=== PATIENT | male | born 1980 | race Caucasian/White ===

== ENCOUNTER 2021-05-17 18:55 | Emergency (ER) | payer BC, OTHER ==
[2021-05-17 19:11] VITALS: BP 128/88; PULSE 78; TEMP 98.6; BMI 36.2
[2021-05-18] MEDS ORDERED: PANTOPRAZOLE 40 MG TABLET ONE (15:16)
[2021-05-18] MEDS ORDERED: AMPICILLIN NA/SULBACTAM NA 3 GM VIAL ONE (15:16)
== END 2021-05-17 19:51 | disposition left against medical advice (07) ==
LOC: EDBD → FER 18:55
DX: R22.41 Localized swelling, mass and lump, right lower limb (principal); H60.91 Unspecified otitis externa, right ear
CPT/HCPCS: 96374; 99284-25

== ENCOUNTER 2021-05-18 13:47 | Inpatient (IN) | payer BC ==
[2021-05-18] MEDS ORDERED: AMPICILLIN NA/SULBACTAM NA 3 GM in SODIUM CHLORIDE 100 ML IVPB ONE (13:58)
[2021-05-18] MEDS ORDERED: ACETAMINOPHEN 325 MG TABLET (FP) PO PRN (13:58)
[2021-05-18] MEDS: PANTOPRAZOLE 40 MG TABLET PO SCH (15:23)
[2021-05-18 15:26] LABS: BASO % 1.5 % (0-2.0); EOS % 1.6 % (0-4.5); HEMATOCRIT 42.6 % (35.4-49); HEMOGLOBIN 14.1 GM/dl (11.7-16.9); LYMPH % 19.3 % (8-40); MCH 26.8 pg (25.7-33.7); MCHC 33.1 g/dl (32.0-35.9); MEAN PLT VOLUME 7.8 fl (7.5-11.1); MONO % 8.5 % (3.8-10.2); NEUT % 69.1 % (42.8-82.8); PLATELET COUNT 318 10^3/uL (134-434); RBC 5.26 M/mm3 (4.00-5.60); RDW 13.4 % (11.9-15.9); WHITE BLOOD COUNT 6.4 K/mm3 (4.0-10.8)
[2021-05-18 15:27] LABS: HEMATOCRIT 41.9 % (35.4-49); HEMOGLOBIN 14.1 GM/dl (11.7-16.9); MCH 27.1 pg (25.7-33.7); MCHC 33.6 g/dl (32.0-35.9); MEAN CELL VOLUME 80.9 fl (80-96); MEAN PLT VOLUME 7.8 fl (7.5-11.1); PLATELET COUNT 314 10^3/uL (134-434); RBC 5.18 M/mm3 (4.00-5.60); RDW 13.3 % (11.9-15.9); WHITE BLOOD COUNT 6.5 K/mm3 (4.0-10.8)
[2021-05-18 15:32] LABS: ALBUMIN 3.6 g/dl (3.4-5.0); ALK PHOS 53 U/L (45-117); ANION GAP 7 MMOL/L (8-16); BILIRUBIN,TOTAL 1.1 mg/dl (0.2-1); CALCIUM 8.7 mg/dl (8.5-10); CHLORIDE 102 mmol/L (98-107); CO2 26 mmol/L (21-32); CREATININE 1.4 mg/dl (0.55-1.3); GLUCOSE,RANDOM 105 mg/dl (74-106); SGOT/AST 27 U/L (15-37); SGPT/ALT 41 U/L (13-61); SODIUM 135 mmol/L (136-145); TOT PROT 6.8 g/dl (6.4-8.2)
[2021-05-18 15:38] LABS: ACTIVATED PTT 27.7 SECONDS (25.2-36.5)
[2021-05-18 15:42] LABS: INR 0.97 (0.82-1.09); PROTHROMBIN TIME (PATIENT) 10.9 SEC (10.2-13.0)
[2021-05-18 16:14] LABS: ERYTHROCYTE SEDIMENTATION RATE 2 mm/hr (0-10)
[2021-05-18 20:38] VITALS: BMI 39.6
[2021-05-19] MEDS ORDERED: AMPICILLIN NA/SULBACTAM NA 3 GM VIAL ONE ×2 (09:27→17:56)
[2021-05-19] MEDS ORDERED: SODIUM CHLORIDE 100 ML IVPB ONE ×2 (09:27→17:57)
[2021-05-19] MEDS: PANTOPRAZOLE 40 MG TABLET PO SCH (10:27)
[2021-05-19] MEDS: AMPICILLIN NA/SULBACTAM NA 3 GM in SODIUM CHLORIDE 100 ML IVPB SCH ×2 (10:27→18:02)
[2021-05-20] MEDS ORDERED: SODIUM CHLORIDE 100 ML IVPB ONE ×2 (01:29→09:58)
[2021-05-20] MEDS ORDERED: AMPICILLIN NA/SULBACTAM NA 3 GM VIAL ONE ×2 (01:29→09:58)
[2021-05-20] MEDS: AMPICILLIN NA/SULBACTAM NA 3 GM in SODIUM CHLORIDE 100 ML IVPB SCH ×2 (01:39→10:33)
[2021-05-20] MEDS ORDERED: CYCLOBENZAPRINE HCL 10 MG TABLET (FP) PO PRN (06:07)
[2021-05-20 10:09] VITALS: BP 111/60; PULSE 78; TEMP 98.3
[2021-05-20] MEDS: PANTOPRAZOLE 40 MG TABLET PO SCH (10:34)
== END 2021-05-20 12:00 | disposition home or self-care (01) | DRG 603 ==
LOC: EDBD 13:47 → FER 13:47 → FM/S 16:04
PROVIDERS: ADMIT Internal Medicine; ATTEND Family Medicine
DX: L03.312 Cellulitis of back [any part except buttock and flank] (principal); L08.9 Local infection of the skin and subcutaneous tissue, unspecified; E66.9 Obesity, unspecified; M54.9 Dorsalgia, unspecified; L70.0 Acne vulgaris; Z68.39 Body mass index [BMI] 39.0-39.9, adult; L02.222 Furuncle of back [any part, except buttock and flank]
CPT/HCPCS: 36415; 70491-TC; 71260-TC; 80053; 85025; 85027; 85610; 85651; 85730; 86140; 87040; 99285-25; C9803; Q9967; U0003; U0005